=== PATIENT | male | born 1935 | race Caucasian/White ===

== ENCOUNTER 2020-01-27 14:11 | Emergency (ER) | payer OTHER ==
[~2020-01-27] VITALS: Ht 172.7 cm; Wt 81.6 kg
[2020-01-27] MEDS ORDERED: RISPERDAL2 MG PO (15:02)
[2020-01-27] MEDS ORDERED: LEVOFLOXACIN750 MG PO (17:47)
--- NOTE | 2020-01-27 22:39 | EKG ---
[facility] [address] [facility] [place], [place] [address] Signed Sinus tachycardia Otherwise normal ECG No previous ECGs available Confirmed by NATHAN ROLAND MD ([id number]) on 01/27/2020 10:39:05 PM Electronically Signed By: NATHAN ROLAND MD 01/27/20 2239 PATIENT NAME: DANIS PAGAN Electrocardiogram DATE OF : 37 PHYSICIAN: NATHAN ROLAND MD REPORT #: [id number] REPORT IS CONFIDENTIAL AND NOT TO BE RELEASED WITHOUT AUTHORIZATION
== END 2020-01-27 18:40 | disposition home or self-care (01) ==
LOC: ED 14:11
DX: J18.9 Pneumonia, unspecified organism (principal); Z88.0 Allergy status to penicillin; Z88.8 Allergy status to other drugs, medicaments and biological substances; Z88.5 Allergy status to narcotic agent; Z91.011 Allergy to milk products; Z79.899 Other long term (current) drug therapy
CPT/HCPCS: 51701; 70450; 70496; 70498; 71045; 80053; 81001; 84484; 85025; 85610; 85730; 93005; 93010; 99285-25; J0456; J0696; J7060; Q9967

== ENCOUNTER 2020-01-28 11:31 | Emergency (ER) | payer OTHER ==
[~2020-01-28] VITALS: Ht 172.7 cm; Wt 81.6 kg
[~2020-01-28 11:31] MED LIST: LEVOFLOXACIN750 MG PO; RISPERDAL2 MG PO
--- OUTSIDE RECORDS SUMMARY | 2020-01-28 11:32 | XMS ---
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 - 2 Visits in 30 Days CARE PROVIDERS There are no care providers on record at this time. Daniela has no Care Guidelines for this patient. Ramona VISIT COUNT (12 MO.) 2 [facility] [facility] TOTAL 2 NOTE: Visits indicate total known visits. ED/C VISIT TRACKING (12 MO.) 01/28/2020 11:[address] [facility] [place] TYPE: Emergency COMPLAINT: - FOLLOW UP VISIT 01/27/2020 14:12 [facility] [place] TYPE: Emergency COMPLAINT: - POSSIBLE STROKE INPATIENT VISIT TRACKING (12 MO.) No inpatient visits to display in this time frame [id number]
== END 2020-01-28 16:24 | disposition home or self-care (01) ==
LOC: ED 11:31
DX: F03.90 Unspecified dementia, unspecified severity, without behavioral disturbance, psychotic disturbance, mood disturbance, and anxiety (principal); R45.1 Restlessness and agitation; R91.8 Other nonspecific abnormal finding of lung field; R33.9 Retention of urine, unspecified; J44.9 Chronic obstructive pulmonary disease, unspecified; E11.9 Type 2 diabetes mellitus without complications; G47.30 Sleep apnea, unspecified; E78.5 Hyperlipidemia, unspecified; Z88.0 Allergy status to penicillin; Z88.8 Allergy status to other drugs, medicaments and biological substances; Z88.5 Allergy status to narcotic agent; Z91.011 Allergy to milk products; Z79.899 Other long term (current) drug therapy
CPT/HCPCS: 51702; 51798; 71250; 71260; 80053; 81001; 85025; 99285-25; J7030; Q9967

== ENCOUNTER 2020-01-29 15:28 | Emergency (ER) | payer OTHER ==
[~2020-01-29] VITALS: Ht 172.7 cm; Wt 81.6 kg
--- OUTSIDE RECORDS SUMMARY | 2020-01-29 15:30 | XMS ---
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 Daniela has no Care Guidelines for this patient. [facility]: Visits indicate total known visits. ED/C VISIT TRACKING (12 MO.) [facility] COMPLAINT: - CATHETER PROBLEM 01/28/2020 11:31 [facility] [place] TYPE: Emergency COMPLAINT: - FOLLOW UP VISIT 01/27/2020 14:12 [facility] [place] TYPE: Emergency COMPLAINT: - POSSIBLE STROKE INPATIENT VISIT TRACKING (12 MO.) No inpatient visits to display in this time frame [id number]
== END 2020-01-29 17:57 | disposition home or self-care (01) ==
LOC: ED 15:28
DX: Z46.6 Encounter for fitting and adjustment of urinary device (principal); R33.9 Retention of urine, unspecified; F03.90 Unspecified dementia, unspecified severity, without behavioral disturbance, psychotic disturbance, mood disturbance, and anxiety; J44.9 Chronic obstructive pulmonary disease, unspecified; E11.9 Type 2 diabetes mellitus without complications; D64.9 Anemia, unspecified; K21.9 Gastro-esophageal reflux disease without esophagitis; G47.30 Sleep apnea, unspecified; Z88.0 Allergy status to penicillin; Z88.8 Allergy status to other drugs, medicaments and biological substances; Z88.5 Allergy status to narcotic agent; Z91.011 Allergy to milk products; Z79.899 Other long term (current) drug therapy
CPT/HCPCS: 99283

== ENCOUNTER 2020-02-01 15:05 | Emergency (ER) | payer OTHER ==
[~2020-02-01] VITALS: Ht 172.7 cm; Wt 81.6 kg
--- OUTSIDE RECORDS SUMMARY | 2020-02-01 15:08 | XMS ---
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 Daniela has no Care Guidelines for this patient. Ramona VISIT COUNT (12 MO.) 4 [facility] [place] TOTAL 4 NOTE: Visits indicate total known visits. ED/C VISIT TRACKING (12 MO.) 02/01/2020 15:06 [facility] [place] TYPE: Emergency COMPLAINT: - ALTERED LOC 01/29/2020 15:29 [facility] [place] TYPE: Emergency COMPLAINT: - CATHETER PROBLEM 01/28/2020 11:31 [facility] [place] TYPE: Emergency COMPLAINT: - FOLLOW UP VISIT DIAGNOSES: - Hyperlipidemia, unspecified - Allergy status to penicillin - Other nonspecific abnormal finding of lung field - Allergy to milk products - Sleep apnea, unspecified - Retention of urine, unspecified - Chronic obstructive pulmonary disease, unspecified - Other assisted (current) drug therapy - Unspecified dementia without behavioral disturbance - Allergy status to other drugs, medicaments and biological substances - Type 2 diabetes mellitus without complications - Allergy status to narcotic agent - Restlessness and agitation 01/27/2020 14:12 [facility] [place] TYPE: Emergency COMPLAINT: - POSSIBLE STROKE DIAGNOSES: - Allergy status to narcotic agent - 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
[2020-02-01] MEDS ORDERED: VENTOLIN HFA18 GM INH (16:23)
[2020-02-01] MEDS ORDERED: TYLENOL325 MG PO (16:23)
[2020-02-01] MEDS ORDERED: BAZA PROTECT C142 GM TOP (16:24)
[2020-02-01] MEDS ORDERED: MUCINEX600 MG PO (16:25)
[2020-02-01] MEDS ORDERED: REFRESH TEARS15 ML OU (16:25)
[2020-02-01] MEDS ORDERED: IPRAT-ALBUT 0.5-3 ML INH (16:26)
[2020-02-01] MEDS ORDERED: MILK OF MA400 MG/5 M PO (16:27)
[2020-02-01] MEDS ORDERED: KAOPECTATE262 MG PO (16:27)
[2020-02-01] MEDS ORDERED: MIRALAX17 GM PO (16:28)
[2020-02-01] MEDS ORDERED: NITROSTAT0.4 MG SL (16:29)
[2020-02-01] MEDS ORDERED: NYSTATIN1 EAC2 TOP (16:29)
[2020-02-01] MEDS ORDERED: TRAZODONE HCL50 MG PO (16:30)
[2020-02-01] MEDS ORDERED: ZOFRAN4 MG PO (16:30)
--- NOTE | 2020-02-02 00:43 | EKG ---
[facility] [address] [facility] [place], [place] [address] Signed Normal sinus rhythm Normal ECG When compared with ECG of 27-JAN-2020 14:29, No significant change was found Confirmed by VALERIE VOGEL MD ([id number]) on 02/02/2020 12:43:10 AM Electronically Signed By: VALERIE VOGEL MD 02/02/20 0043 PATIENT NAME: DANIS PAGAN Electrocardiogram DATE OF : 37 PHYSICIAN: VALERIE VOGEL MD REPORT #: [id number] REPORT IS CONFIDENTIAL AND NOT TO BE RELEASED WITHOUT AUTHORIZATION
== END 2020-02-01 22:11 | disposition home or self-care (01) ==
LOC: ED 15:05
DX: F03.90 Unspecified dementia, unspecified severity, without behavioral disturbance, psychotic disturbance, mood disturbance, and anxiety (principal); E87.0 Hyperosmolality and hypernatremia; J44.9 Chronic obstructive pulmonary disease, unspecified; E11.9 Type 2 diabetes mellitus without complications; D64.9 Anemia, unspecified; K21.9 Gastro-esophageal reflux disease without esophagitis; G47.30 Sleep apnea, unspecified; E78.5 Hyperlipidemia, unspecified; Z88.0 Allergy status to penicillin; Z88.8 Allergy status to other drugs, medicaments and biological substances; Z88.5 Allergy status to narcotic agent; Z91.011 Allergy to milk products; Z79.899 Other long term (current) drug therapy
CPT/HCPCS: 70450; 71045; 80053; 81001; 83605; 85025; 93005; 93010; 99285-25; C9803; U0003